=== PATIENT | male | born 1960 | race African-American/Black ===

== ENCOUNTER 2020-05-10 15:04 | Emergency (ER) | payer BC ==
[~2020-05-10 15:04] MED LIST: Iopamidol 370 76% 100 ML VIAL ONE
[2020-05-10 15:49] LABS: #Basophils 0.1 thou/uL (0.0-0.2); #Monocytes 0.6 thou/uL (0.11-0.59); #Neutrophils 6.6 thou/uL (1.40-6.50); %Basophils 1.1 % (0.0-1.0); %Eosinophils 0.1 % (0.0-10.0); %Lymphocytes 11.8 % (21.0-51.0); %Monocytes 7.1 % (0.0-10.0); %Neutrophils 79.9 % (42.0-75.0); Hemoglobin 13.6 g/dL (14.0-18.0); Mean Corpuscular HGB CONC 32.3 g/dL (32.0-36.0); Mean Corpuscular Hemoglobin 26.2 pg (27.0-31.0); Mean Corpuscular Volume 81.1 fL (78.0-98.0); Mean Platelet Volume 7.4 fL (7.4-10.4); Platelet Count 227 thou/uL (130-400); RBC Distribution Width 13.6 % (11.5-14.5); Red Blood Cell (RBC) Count 5.19 mill/uL (4.70-6.10); White Blood Cell (WBC) Count 8.3 thou/uL (4.8-10.8)
[2020-05-10 15:54] LABS: PTT 26.5 sec (22.9-36.1); Prothrombin Time 14.5 sec (12.0-14.7)
[2020-05-10 15:57] LABS: INR-International Normal Ratio 1.1
--- NOTE | 2020-05-10 15:58 | CT ---
CT HEAD WITHOUT IV CONTRAST COMPARISON: 08/01/2016 HISTORY: Stroke alert. Dizziness. TECHNIQUE: Axial CT imaging at 5 mm intervals from vertex through skull base without contrast FINDINGS: There is an area of encephalomalacia in the right cerebellar hemisphere related to remote area of inf arction. There is no evidence of an acute infarction, hemorrhage, mass effect, or midline shift. The ventricular system is normal in size, shape, and position. Skull base has a normal CT appearance. Mucous retention cyst is again present in right maxillary antrum with trace mucosal thickening seen i n a few ethmoidal air cells and left maxillary antrum. Mastoid air cells are clear. Osseous structures appear intact. IMPRESSION: 1. No acute intracranial abnormality demonstrated. 2. 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 3. Above findings discussed with in the emergency department on 05/10/2020 at 1554 hours.
[2020-05-10 16:05] LABS: ALT (SGPT) 46 U/L (8-55); AST (SGOT) 36 U/L (5-34); Albumin 4.3 g/dL (3.5-5.0); Alkaline Phosphatase 52 U/L (40-110); Anion Gap 18 mmol/L (10-20); BUN (Urea Nitrogen) 15 mg/dL (8.4-25.7); Bilirubin, Total 0.3 mg/dL (0.2-1.2); Calc. Creatinine Clearance 0 mL/min (70-130); Calcium 9.1 mg/dL (7.8-10.44); Carbon Dioxide 21 mmol/L (22-29); Chloride 102 mmol/L (98-107); Estimated GFR-MDRD Greater than 90; Globulin 3.1 g/dL (2.4-3.5); Glucose 136 mg/dL (70-105); Potassium 4.2 mmol/L (3.5-5.1); Protein, Total 7.4 g/dL (6.0-8.3); Sodium 137 mmol/L (136-145)
[2020-05-10] MEDS ORDERED: Aspirin 325 MG TAB ONE (16:06)
--- NOTE | 2020-05-10 16:40 | CT ---
CT ANGIO OF HEAD AND NECK PERFORMED WITH INTRAVENOUS CONTRAST ENHANCEMENT WITH 3D RECONSTRUCTIONS: 05/10/20 HISTORY: Stroke symptoms. COMPARISON: CT done earlier today. The lung apices are clear of any infiltrative process. Thyroid gland region appears unremarkable. No significant jugular chain adenopathy. Parapharyngeal spaces are clear. 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 CT ANGIO OF NECK PERFORMED WITH INTRAVENOUS CONTRAST ENHANCEMENT WITH 3D RECONSTRUCTIONS: The vertebral arteries are codominant. There is fairly equal contribution to the basilar artery. The right common internal and external carotid arteries are unremarkable. The internal carotid arteri es are moderately medially deviated. No stenosis by NASCET criteria. The left common, internal and ex ternal carotid arteries, also showed no significant stenosis. CT ANGIO OF HEAD PERFORMED WITH CONTRAST WITH 3D RECONSTRUCTION: The anterior and middle cerebral arteries and their branches appear unremarkable. The basilar artery and posterior cerebral arteries also appear unremarkable. IMPRESSION: Unremarkable CT angio of head and neck. No evidence of significant stenosis by NASCET criteria. No in tracranial abnormalities. POS: OFF
[2020-05-10] MEDS ORDERED: Clopidogrel Bisulfate 75 MG TAB ONE (17:03)
== END 2020-05-10 17:40 | disposition short-term general hospital (02) ==
LOC: NAV ERS 15:04
DX: I63.9 Cerebral infarction, unspecified (principal); E78.5 Hyperlipidemia, unspecified; I10 Essential (primary) hypertension; F17.210 Nicotine dependence, cigarettes, uncomplicated; Z79.899 Other long term (current) drug therapy
CPT/HCPCS: 0042T; 36416; 70450; 70496; 80053; 84484; 85025; 85610; 85730; 93005; 94760; Q9967